=== PATIENT | female | born 1965 | race Caucasian/White ===

== ENCOUNTER 2018-04-19 12:55 | Day surgery (SDC) | payer OTHER ==
[~2018-04-19 12:55] MED LIST: MIDAZOLAM 2 MG/2 ML SOL ONE
[2018-04-19] MEDS: PHENYLEPHRINE HCL 10% OPHTHAL SOL ONE ×3 (13:15→13:27)
[2018-04-19] MEDS: TROPICAMIDE 1% OPHTH SOL ONE ×3 (13:16→13:27)
[2018-04-19] MEDS: CYCLOPENTOLATE 1% SOL ONE ×3 (13:16→13:27)
[2018-04-19] MEDS ORDERED: MOXIFLOXACIN-HOME SOL LEFTEYE ONE ×2 (13:17→13:23)
[2018-04-19] MEDS ORDERED: KETOROLAC/HOME 0.5% SOL LEFTEYE ONE ×3 (13:17→13:27)
[2018-04-19] MEDS ORDERED: POVIDONE IODINE 5% SOL ONE (13:55)
[2018-04-19] MEDS ORDERED: BSS W/ 0.5 MG P.F. EPI 1 BOTTLE ONE (13:55)
[2018-04-19] MEDS ORDERED: LIDOCAINE HCL 2% MPF 10 ML SOL ONE (13:55)
[2018-04-19] MEDS ORDERED: ACETAZOLAMIDE 250 MG PO ONE (14:03)
[2018-04-19 14:31] VITALS: BP 146/87; PULSE 85; RESP 18; TEMP 97.6; O2SAT 100
== END 2018-04-19 14:55 | disposition home or self-care (01) | DRG 125 ==
LOC: SURG 12:55
PROVIDERS: ATTEND Ophthalmology
DX: H25.89 Other age-related cataract (principal); E11.9 Type 2 diabetes mellitus without complications
CPT/HCPCS: 82962; J2250; A9270-GY

== ENCOUNTER 2018-05-03 11:03 | Day surgery (SDC) | payer OTHER ==
[2018-05-03] MEDS: PHENYLEPHRINE HCL 10% OPHTHAL SOL ONE ×3 (11:17→11:33)
[2018-05-03] MEDS: CYCLOPENTOLATE 1% SOL ONE ×3 (11:20→11:34)
[2018-05-03] MEDS: TROPICAMIDE 1% OPHTH SOL ONE ×3 (11:21→11:34)
[2018-05-03] MEDS ORDERED: MOXIFLOXACIN-HOME SOL RIGHTEYE ONE ×2 (11:22→11:29)
[2018-05-03] MEDS: KETOROLAC/HOME 0.5% SOL RIGHTEYE ONE ×2 (11:22→11:35)
[2018-05-03] MEDS ORDERED: KETOROLAC/HOME 0.5% SOL RIGHTEYE ONE (11:29)
[2018-05-03] MEDS: TETRACAINE HCL 0.5 % 1 DROP SOL ONE ×2 (11:35→12:33)
[2018-05-03 11:40] VITALS: BP 123/80; PULSE 80; RESP 16; TEMP 98.4; O2SAT 94
[2018-05-03] MEDS ORDERED: MIDAZOLAM 2 MG/2 ML SOL ONE (11:57)
[2018-05-03] MEDS ORDERED: ACETAZOLAMIDE 250 MG PO ONE (12:06)
[2018-05-03] MEDS ORDERED: LIDOCAINE HCL 2% MPF 10 ML SOL ONE (12:27)
[2018-05-03] MEDS ORDERED: BSS W/ 0.5 MG P.F. EPI 1 BOTTLE ONE (12:27)
[2018-05-03] MEDS ORDERED: POVIDONE IODINE 5% SOL ONE (12:27)
== END 2018-05-03 13:19 | disposition home or self-care (01) | DRG 125 ==
LOC: SURG 11:03
PROVIDERS: ATTEND Ophthalmology
DX: H25.89 Other age-related cataract (principal); E11.9 Type 2 diabetes mellitus without complications
CPT/HCPCS: 82962; J2250; A9270-GY